=== PATIENT | female | born 1970 | race Asian ===

== ENCOUNTER 2025-01-21 00:50 | Outpatient (CLI) | payer BC, SELFPAY ==
--- NOTE | 2025-01-21 | DI.MRI_ITS ---
Exam(s) MR ABDOMEN WO/W EXAM: MR ABDOMEN WO/W CLINICAL HISTORY: Liver lesion, posterior rt lobe, K76.9, hepatic segment 7 on [address]sim for xrt TECHNIQUE: Multiplanar multisequence MRI was performed with both pre and post contrast infused seque nces. Contrast injected sequences were performed following IV injection of 14 cc of Dotarem. COMPARISON: There are no prior abdominal imaging exams FINDINGS: VISUALIZED LUNG BASES: No pleural effusions evident. There is no ascites evident. LIVER: There is a solitary lesion in the right hepatic lobe which is T1 hypointense and T2 bright, me asuring 1.4 by 1.3 by 0.9 cm and lobulated. Following IV contrast injection it exhibits progressive internal enhancement in pattern typical of a benign cavernous hemangioma. Also noted in the right hepatic lobe is a tiny 2 mm nonenhancing benign cyst. BILIARY: There are multiple small layering gallstones in the gallbladder. There is no gallbladder wa ll edema nor pericholecystic fluid. The CBD is not dilated and there are no calculi evident in the C BD. PANCREAS: There is no evidence of pancreatic mass nor dilatation of the pancreatic duct. SPLEEN: Spleen is not enlarged and there are no intrasplenic lesions.Splenic and portal veins are pat ent ADRENALS: Left adrenal gland unremarkable. There is a small nodule in the right adrenal gland which measures 1.2 x 0.8 cm and exhibits some signal loss on out of phase sequences consistent with small a denoma. KIDNEYS: No solid renal masses. No hydronephrosis.No cysts evident. ABDOMINAL AORTA: Not enlarged and there is no significant para-aortic adenopathy. ANTERIOR ABDOMINAL WALL/GI: There is no evidence of significant anterior abdominal wall hernia in the field of view of this study.Is no evidence of obvious bowel obstruction. OSSEOUS: There are no lytic osseous lesions in the field of view of this study. IMPRESSION: 1. Cholelithiasis. There are multiple small gallstones noted on the dependent wall of the gallbladde r. No MRI evidence of acute cholecystitis nor significant dilatation of the biliary tree. There are no calculi seen in the nondilated CBD. 2. 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 3. There is a 12 x 8 mm small nodule in the right adrenal gland which has appearance of a probable be nign adenoma. Recommend follow-up MRI in 1 year to ensure stability of the above findings, earlier if clinically in dicated.. DATA REPOSITORY:
[2025-01-21] MEDS: Gadoterate meglumine 20 ML VIAL 14 ML IVP (12:07)
[2025-01-21] MEDS: Normal Saline - Diluent 50 ML VIAL 25 ML IJ (12:08)
== END 2025-01-21 01:10 ==
PROVIDERS: PCP Nurse Practitioner Family; Visit Provider Radiology Radiation Oncology
DX: K76.0 Fatty (change of) liver, not elsewhere classified (principal)
CPT/HCPCS: 74183

== ENCOUNTER 2025-01-21 10:45 | Outpatient (RCR) | payer BC, SELFPAY ==
[2025-01-21] MEDS: Normal Saline Flush 10 ML SYR IVP (11:30)
== END 2025-01-24 23:59 | disposition home or self-care (01) ==
LOC: INF 10:45
PROVIDERS: Visit Provider Radiology Radiation Oncology
DX: Z45.2 Encounter for adjustment and management of vascular access device (principal)
CPT/HCPCS: 96523